=== PATIENT | female | born 1995 | race Caucasian/White ===

== ENCOUNTER 2024-09-14 19:20 | Emergency (ER) | payer OTHER, SELFPAY ==
[2024-09-14 19:24] VITALS: BP 118/79
[2024-09-14] MEDS: NSS 1000 IV (21:12)
[2024-09-14 21:19] LABS: % Basophils 0.4 % (0-2); % Eosinophils 1.6 % (0-6); % Immature Granulocytes 0.4 % (0-0.5); % Monocytes 6.4 % (1.7-9.3); % Neutrophils 58.2 % (42.2-75.2); Absolute Eosinophils 0.1 10^3/uL (0-0.7); Absolute Lymphocytes 2.7 10^3/uL (1.2-3.4); Absolute Monocytes 0.5 10^3/uL (0.1-0.6); Absolute Neutrophils 4.9 10^3/uL (1.4-6.5); Hemoglobin 13.8 g/dL (12.0-16.0); Mean Corp Hgb Conc. 36.3 g/dL (33.0-37.0); Mean Corpuscular Hgb 33.7 pg (27.0-31.0); Mean Corpuscular Volume 92.9 fL (81.0-99.0); Mean Platelet Volume 9.7 fL (7.4-10.4); Nucleated Red Blood Cells % 0 %; Platelet Count 227 10^3/uL (130-400); Red Blood Cell Count 4.09 10^6/uL (4.20-5.40); Red Cell Dist. Width 12.2 % (11.5-14.5); White Blood Cell Count 8.3 10^3/uL (4.8-10.8)
[2024-09-14 21:49] LABS: ALT (SGPT) 20 U/L (0-35); AST (SGOT) 23 U/L (14-36); Albumin 4.8 g/dl (3.5-5.0); Alkaline Phosphatase 39 U/L (38-126); Blood Urea Nitrogen 12 mg/dl (7-17); Calcium 9.9 mg/dl (8.4-10.2); Carbon Dioxide 25 mmol/L (22-30); Chloride 102 mmol/L (98-107); Glucose 92 mg/dl (70-99); Sodium 139 mmol/L (135-145); Total Bilirubin 0.4 mg/dl (0.2-1.3); Total Protein 7.2 g/dl (6.3-8.2); eGFR > 60.00
[2024-09-14 22:40] VITALS: BP 110/74
--- NOTE | 2024-09-14 23:53 | ED.GENMED ---
History of Present Illness
General
Chief Complaint: Problems
Source: patient
Time Seen by Provider: 09/14/24 20:19
Nursing documentation reviewed up to this point in time: agreed with
History of Present Illness
History of Present Illness:
Patient to ED with abdominal cramping, vaginal bleeding. States she is approx 7 weeks . Noted spotting last PM. Today bleeding became heavier. Brought to ED by spouse and mother. .
Past History
Past History
ED Past Medical History: None
ED Past Surgical History: None
Social History
Tobacco: Non-smoker
Alcohol: None
Drug: None
Review of Systems
Review of Systems
Allergies reviewed?: Yes
All Other Systems: ROS reviewed and negative except as documented in HPI and ROS
EENT: Reports no symptoms
Respiratory: Reports no symptoms
Cardiac: Reports no symptoms
ABD/GI: Reports other (abdominal cramping)
: Reports bleeding
Musculoskeletal: Reports no symptoms
Skin: Reports no symptoms
Neurological: Reports no symptoms
Psychiatric: Reports no symptoms
Phy Exam
General Physical Exam
General Presentation: well appearing and no apparent distress
General age: appears stated age
General Skin: warm and dry
General Habitus: normal
General Mental: alert
General Hydration: appears well hydrated
Cardiovascular Exam
Cardiovascular Exam: regular rate/rhythm
Gastrointestinal Exam
Gastrointestinal Exam: normal bowel sounds and non tender
Genitourinary Exam Female
Vaginal Exam: blood
Vaginal Bleeding: moderate
Visual exam of cervix: os closed
Musculoskeletal Exam
Musculoskeletal Exam: full ROM and neuro vasc intact
Skin Exam
Skin Exam: normal color, warm/dry and no rash
Psychiatric Exam
Psychiatric Exam: normal mood/affect
Course
Orders/Labs/Results
Orders:
Orders
09/14/24 20:19
US W Transvaginal Urgent
Reason For Exam: pvb
09/14/24 21:04
Blood Group&Type Urgent
Beta HCG Quantitative Urgent
Is this a screen?: No
Complete Blood Count/With Diff Urgent
Comprehensive Metabolic Panel Urgent
09/14/24 21:12
0.9% Sodium Chloride 1000 ml [Nss] 1,000 ml IV BOLUS
09/14/24 23:12
ABO2 Urgent
BBK Wristband Number:
Associate notified that ABO2 has been ordered: [id number]
Date: 09/14/24
Time: 21:15
Certified Hyperbaric Technician ID: [id number]
Abnormal Lab Results
09/14/24
21:04
RBC 4.09 L 10^6/uL
(4.20-5.40)
MCH 33.7 H pg
(27.0-31.0)
09/14/24 21:04
09/14/24 21:04
Vital Signs
Initial and Last Documented VS:
Initial Vital Signs
Temp Pulse Resp BP Pulse Ox
98.1 F 97 16 118/79 99
09/14/24 19:24 09/14/24 19:24 09/14/24 19:24 09/14/24 19:24 09/14/24 19:24
Last Documented Vital Signs
Temp Pulse Resp BP Pulse Ox
98.5 F 76 20 106/68 98
09/14/24 22:40 09/15/24 00:01 09/14/24 22:40 09/15/24 00:01 09/15/24 00:01
Information
Weeks gestation: Weeks: (7)
Location: N/A
MDM/Problems Addressed
Differential Diagnosis Includes:
. Patient reports she is approx 7 weeks . Dveloped spotting last PM, heavier bleeding today. US tonight initially identified sac/no fetus but sac no longer visualized after patient voided signifying miscarriage. Discussed this with
patient. Pelvic exam completed. +bleeding, No tissue in vagina, no blood clots. HCG 14,800 noted. A pos - does not require Rhogam. SHe will be discharged home tonight and will follow up with OB in 1-2 days. WIll need repeat HCG. She was given
instructions on s/s to return to ED and she is agreeable to plan .
*Radiology
Radiology exam reviewed: radiology read reviewed
*Pulse Oximetry
Patient hypoxic: no
*Critical Care Note
Total Time (30-74mins, 75-104mins- exclusive of procedures): Not Applicable
ED Attending Note
-
Portions of this chart may have been created with voice recognition software.� Occasional wrong word or��sound alike� substitutions may have occurred due to the inherent limitations of voice recognition software.
Discharge Plan
Departure
Patient Disposition: Home (Routine Discharge)
Date of Disposition: 09/14/24
Time of Disposition: 23:52
Patient with high blood pressure during this ER visit?: No
Condition: Good
Covid-19: Not Applicable
Discharge Problem:
Miscarriage
Instructions: Miscarriage (DC)
Referrals:
Anolik,Ida, DO [Family Provider] -
Activity Restrictions/Additional Instructions:
Follow up with your obstrician in the AM
Interventions
Interventions:
*Risk Screen - Suicide Last Done: 09/14/24 19:24
*General Assessment Last Done: 09/14/24 19:24
*Neglect/Abuse Screening Last Done: 09/14/24 19:24
ED- Fall Risk Assessment Last Done: 09/15/24 00:01
*ED COVID-19 Vaccine History Last Done: 09/15/24 00:01
*Nursing Disposition Last Done: 09/15/24 00:01
ED-Female Genitourinary Assessment Last Done: 09/15/24 00:01
Discharge Date and Time
Discharge Date/Time: 09/15/24 00:02
Print Language: PERSIAN
[2024-09-15 00:01] VITALS: BP 106/68
== END 2024-09-15 00:02 | disposition home or self-care (01) ==
LOC: EMR 19:20
PROVIDERS: EMERGENCY PHYSICIAN Emergency Medicine; FAMILY PHYSICIAN Family Medicine
DX: O03.9 Complete or unspecified spontaneous abortion without complication (principal)
CPT/HCPCS: 96360; 99284; 76801; 76817; 80053; 84702; 85025; 86900; 86901

== ENCOUNTER → 2025-06-28 13:17 | Outpatient (REF) | payer OTHER, SELFPAY | LOC: PNTC 13:17 | PROVIDERS: ATTENDING PHYSICIAN Obstetrics & Gynecology | DX: Z36.82 Encounter for antenatal screening for nuchal translucency (principal); Z36.0 Encounter for antenatal screening for chromosomal anomalies | CPT/HCPCS: 76801; 76813 ==